=== PATIENT | male | born 1990 | race Two or more races ===

== ENCOUNTER 2019-03-26 11:28 | Emergency (ER) | payer MEDICAID ==
[~2019-03-26] VITALS: Ht 172.7 cm; Wt 82.6 kg
[2019-03-26 11:28] VITALS: BP 116/73
[2019-03-26] MEDS ORDERED: ACETAMINOPHEN ES 500 MG TABLET ONE (11:49)
[2019-03-26] MEDS ORDERED: ONDANSETRON 4 MG TAB.RAPDIS ONE (11:49)
[2019-03-26] MEDS ORDERED: ONDANSETRON 4 MG TAB.RAPDIS SL ONE (12:00)
[2019-03-26] MEDS ORDERED: ACETAMINOPHEN ES 500 MG TABLET PO ONE (12:00)
== END 2019-03-26 13:09 | disposition home or self-care (01) ==
LOC: ER 11:30
DX: S09.8XXA Other specified injuries of head, initial encounter (principal); R51 Headache; F17.200 Nicotine dependence, unspecified, uncomplicated; F10.10 Alcohol abuse, uncomplicated; Y90.9 Presence of alcohol in blood, level not specified; W22.8XXA Striking against or struck by other objects, initial encounter; Y93.89 Activity, other specified; Y92.89 Other specified places as the place of occurrence of the external cause; Y99.8 Other external cause status
CPT/HCPCS: 70450; 99284; Q0162